=== PATIENT | female | born 1970 | race Caucasian/White ===

== ENCOUNTER 2016-08-15 15:21 | Inpatient (IN) ==
--- NOTE | 2016-08-15 16:14 | Emergency Department Note ---
Disposition Clinical Impression: JIMENEZ (dyspnea on exertion) Chest pain Qualifiers: Chest pain type: unspecified Qualified Code(s): R07.9 - Chest pain, unspecified Cirrhosis Qualifiers: Hepatic cirrhosis type: unspecified hepatic cirrhosis Ascites presence: without ascites Qualified Code(s): K74.60 - Unspecified cirrhosis of liver Disposition: Admitted As Inpatient Condition: Fair Referrals: NO,PCP [Primary Care Provider] - Forms: ED Satisfaction Letter Time of Disposition: 20:00 SOB HPI - General Chief Complaint: ED Shortness of Breath/Dyspnea Stated Complaint: SOB Time Seen by Provider: 08/15/16 15:49 Source: patient, family Limitations: no limitations Nursing Notes Reviewed: Yes Vital Signs Reviewed: Yes - History of Present Illness Patient is a 46 her old female presents with past medical history significant for COPD, cirrhosis, CKD, history of unprovoked pulmonary embolus presents with a one-week history of dyspnea. Patient states that over the last 2 days she has had increased dyspnea, which is worse with walking. Patient also admits to left-sided chest pressure that wraps around the left side to the left back. Chest pressure is worsened with exercise for as little as 10 feet. Patient states the shortness of breath and chest pressure sensation feel the same as when she previously had an unprovoked pulmonary embolism. Patient admits to pain to deep inspiration, dizziness, headache, confusion, fever, chills, dehydration. Patient did have profuse vomiting yesterday with associated abdominal pain. Patient admits to bilateral leg swelling which is constant. Patient admits to smoking one half a pack of cigarettes per day. She does admit to a history of cocaine, meth, and heroin in the past. - Related Data Allergies Allergy/AdvReac Type Severity Reaction Status Date / Time ibuprofen Allergy See Verified 08/15/16 15:23 Comments rivaroxaban [From Xarelto] Allergy See Verified 08/15/16 15:23 Comments [place] Allergy See Verified 08/15/16 15:23 Comments All systems ED: reviewed and negative except as stated. Constitutional: Reports: as per HPI Eyes: Reports: as per HPI ENT ED: Reports: as per HPI Cardiovascular: Reports: as per HPI Respiratory: Reports: as per HPI Gastrointestinal: Reports: as per HPI Genitourinary: Reports: as per HPI Musculoskeletal: Reports: as per HPI Integumentary: Reports: as per HPI Neurological: Reports: as per HPI Psychiatric: Reports: as per HPI Endocrine: Reports: as per HPI Hematological/Lymphatic: Reports: as per HPI Allergic/Immunologic: Reports: as per HPI Past Medical History - Past Medical History Medical history: Reports: cirrhosis, COPD, liver disease, pulmonary embolus, renal disease Psychiatric history: Reports: no psych history - Social History Smoking Status: Current every day smoker Alcohol use: Reports: none Drug use: Reports: none Physical Exam - General Limitations: no limitations General appearance: alert, anxious, in distress (Mild) - Head Head exam: atraumatic - Eye Eye exam: Present: normal appearance, EOMI - Neck Neck exam: Present: normal inspection, full ROM, trachea midline. Absent: tenderness, thyromegaly - Chest Chest inspection: Present: normal inspection, symmetric chest wall rise. Absent : tenderness - Respiratory Respiratory exam: Present: normal lung sounds bilaterally. Absent: respiratory distress, wheezes - Cardiovascular Cardiovascular exam: Present: regular rate, normal rhythm, +S1, +S2. Absent: systolic murmur, diastolic murmur, JVD - Abdominal Exam Abdominal exam: Present: soft, Non-Tender, normal bowel sounds. Absent: distention, guarding, rebound, rigidity - Extremities Exam Extremities exam: Present: full ROM, tenderness (To palpation of lower legs), pedal edema (2+ pitting edema to left lower leg to the level of the knee. 1+ pitting edema to right lower leg to the level of the knee.), other. Absent: joint swelling - Neurological Exam Neurological exam: Present: alert, oriented X3 - Psychiatric Psychiatric exam: Present: anxious - Skin Skin exam: Present: warm, dry, intact Course - Reevaluation(s) Reevaluation #1: Patient has an elevated d-dimer of 661. Her GFR is 50. We will proceed with CTA chest to rule out PE. Patient's initial troponin is 0.00. Time: 17:36 Reevaluation #2: CT chest is negative for pulmonary embolism. The patient does have moderate emphysema which is greater than expected for age. CT does reveal a small patchy opacity in the left lateral lung base this likely contracts representative of atelectasis. Also demonstrated is hepatic steatosis and small hiatal hernia. Given the patient's symptoms of chest pain with dyspnea on exertion and T-wave inversions present on EKG, we will admit the patient to rule out myocardial ischemia. Time: 19:30 Vital Signs Temperature 98.3 F 08/15/16 15:24 Pulse Rate 110 08/15/16 15:24 Respiratory Rate 22 08/15/16 15:24 Blood Pressure 96/65 08/15/16 15:24 O2 Sat by Pulse Oximetry 99 08/15/16 15:24 Temperature 98.3 F 08/15/16 15:46 Pulse Rate 100 08/15/16 16:02 Respiratory Rate 16 08/15/16 16:02 Blood Pressure 136/80 08/15/16 16:02 O2 Sat by Pulse Oximetry 99 08/15/16 16:02 Oxygen Delivery Oxygen Delivery Room Air Shortness of Breath/Dyspnea - MDM Narrative Medical decision making narrative: Patient presents with increased dyspnea and chest pressure that spent worsening for the last 2 days. She states this pain is similar to when she had an unprovoked PE in the past. Upon presentation, patient did have tachycardia at a rate of 100bpm and mild hypotension of 96/65. We will proceed with obtaining CBC, CMP, troponin, d-dimer. Concern is that this may be a PE, but there is also concern for myocardial ischemia given dyspnea on exertion. Tests are pending at this time. - Lab Data Lab results reviewed: Yes I reviewed the patient's lab results. Result diagrams: 08/15/16 16:44 08/15/16 16:44 Lab Results 08/15/16 08/15/16 08/15/16 Range/Units 16:44 16:44 16:44 WBC 8.6 (4.3-11.1) K/mcL RBC 3.42 L (3.82-4.97) M/mcL Hgb 10.8 L (11.5-15.4) g/dL Hct 31.9 L (35.3-44.9) % MCV 93.3 (83.0-100.0) fL MCH 31.6 (28.0-33.3) pg MCHC 33.9 (31.6-35.5) g/dL RDW 16.5 H (11.5-14.5) % Plt Count 444 H (140-400) K/mcL MPV 10.1 (9.4-12.4) fL Immature Gran % 0.2 (0-4) % Seg Neutrophils % 52.6 % Lymphocytes % 38.4 % Monocytes % 8.3 % Eosinophils % 0.1 % Basophils % 0.4 % Neutrophils # 4.5 (1.6-8.9) K/mcL Lymphocytes # 3.3 (0.6-4.6) K/mcL Monocytes # 0.7 (0.0-1.3) K/mcL Eosinophils # 0.0 (0.0-0.6) K/mcL Basophils # 0.0 (0.0-0.2) K/mcL D-Dimer 617 H (0-500) ng/mLFEU Sodium 140 (136-145) mEq/L Potassium 4.2 (3.5-4.5) mEq/L Chloride 110 H (98-109) mEq/L Carbon Dioxide 21 (19-29) mEq/L BUN 15 (7-20) mg/dL Creatinine 1.17 H (0.57-1.11) mg/dL Est GFR ( Amer) > 60 (> 60) Est GFR (Non-Af Amer) 50 L (> 60) BUN/Creatinine Ratio 13 (6-26) Glucose 92 (70-99) mg/dL Calculated Osmolality 290 (280-300) Lactic Acid (0.5-2.2) mmol/L Calcium 7.3 L (8.6-10.8) mg/dL Troponin I (0-0.03) ng/mL B-Natriuretic Peptide (0-100) pg/mL Urine Color (Yellow) Urine Clarity (Clear) Urine pH (5.0-8.0) pH Units Ur Specific [place] (1.010-1.025) Urine Protein (Neg-Trace) mg/dL Urine Glucose (UA) (Normal) mg/dL Urine Ketones (Negative) mg/dL Urine Blood (Negative) Urine Nitrite (Negative) Urine Bilirubin (Negative) Urine Urobilinogen (Normal) mg/dL Ur Leukocyte Esterase (Negative) Urine Microscopic RBC (0-3) per hpf Urine Microscopic WBC (0-3) per hpf Ur Squamous Epith Cells (None-Few) per lpf Urine Bacteria (None-Few) per hpf Hyaline Casts (None-Few) per lpf Ur Culture Indicated? (NO) Urine Opiates Screen (Dfayoi=645) ng/mL Ur Barbiturates Screen (Zuudll=381) ng/mL Ur Phencyclidine Scrn (Cutoff=25) ng/mL Ur Amphetamines Screen (Nlhbrt=1965) ng/mL U Benzodiazepines Scrn (Zxyvck=081) ng/mL Urine Cocaine Screen (Cutoff= 300) ng/mL U Marijuana (THC) Screen (Cutoff = 50) ng/mL 08/15/16 08/15/16 08/15/16 Range/Units 16:44 16:44 16:44 WBC (4.3-11.1) K/mcL RBC (3.82-4.97) M/mcL Hgb (11.5-15.4) g/dL Hct (35.3-44.9) % MCV (83.0-100.0) fL MCH (28.0-33.3) pg MCHC (31.6-35.5) g/dL RDW (11.5-14.5) % Plt Count (140-400) K/mcL MPV (9.4-12.4) fL Immature Gran % (0-4) % Seg Neutrophils % % Lymphocytes % % Monocytes % % Eosinophils % % Basophils % % Neutrophils # (1.6-8.9) K/mcL Lymphocytes # (0.6-4.6) K/mcL Monocytes # (0.0-1.3) K/mcL Eosinophils # (0.0-0.6) K/mcL Basophils # (0.0-0.2) K/mcL D-Dimer (0-500) ng/mLFEU Sodium (136-145) mEq/L Potassium (3.5-4.5) mEq/L Chloride (98-109) mEq/L Carbon Dioxide (19-29) mEq/L BUN (7-20) mg/dL Creatinine (0.57-1.11) mg/dL Est GFR ( Amer) (> 60) Est GFR (Non-Af Amer) (> 60) BUN/Creatinine Ratio (6-26) Glucose (70-99) mg/dL Calculated Osmolality (280-300) Lactic Acid 3.6 H (0.5-2.2) mmol/L Calcium (8.6-10.8) mg/dL Troponin I 0.00 (0-0.03) ng/mL B-Natriuretic Peptide 34 (0-100) pg/mL Urine Color (Yellow) Urine Clarity (Clear) Urine pH (5.0-8.0) pH Units Ur Specific [place] (1.010-1.025) Urine Protein (Neg-Trace) mg/dL Urine Glucose (UA) (Normal) mg/dL Urine Ketones (Negative) mg/dL Urine Blood (Negative) Urine Nitrite (Negative) Urine Bilirubin (Negative) Urine Urobilinogen (Normal) mg/dL Ur Leukocyte Esterase (Negative) Urine Microscopic RBC (0-3) per hpf Urine Microscopic WBC (0-3) per hpf Ur Squamous Epith Cells (None-Few) per lpf Urine Bacteria (None-Few) per hpf Hyaline Casts (None-Few) per lpf Ur Culture Indicated? (NO) Urine Opiates Screen (Xkzhhv=555) ng/mL Ur Barbiturates Screen (Bpqxtg=789) ng/mL Ur Phencyclidine Scrn (Cutoff=25) ng/mL Ur Amphetamines Screen (Hciodq=6478) ng/mL U Benzodiazepines Scrn (Jiyqpo=308) ng/mL Urine Cocaine Screen (Cutoff= 300) ng/mL U Marijuana (THC) Screen (Cutoff = 50) ng/mL 08/15/16 08/15/16 08/15/16 Range/Units 17:35 17:35 18:50 WBC (4.3-11.1) K/mcL RBC (3.82-4.97) M/mcL Hgb (11.5-15.4) g/dL Hct (35.3-44.9) % MCV (83.0-100.0) fL MCH (28.0-33.3) pg MCHC (31.6-35.5) g/dL RDW (11.5-14.5) % Plt Count (140-400) K/mcL MPV (9.4-12.4) fL Immature Gran % (0-4) % Seg Neutrophils % % Lymphocytes % % Monocytes % % Eosinophils % % Basophils % % Neutrophils # (1.6-8.9) K/mcL Lymphocytes # (0.6-4.6) K/mcL Monocytes # (0.0-1.3) K/mcL Eosinophils # (0.0-0.6) K/mcL Basophils # (0.0-0.2) K/mcL D-Dimer (0-500) ng/mLFEU Sodium (136-145) mEq/L Potassium (3.5-4.5) mEq/L Chloride (98-109) mEq/L Carbon Dioxide (19-29) mEq/L BUN (7-20) mg/dL Creatinine (0.57-1.11) mg/dL Est GFR ( Amer) (> 60) Est GFR (Non-Af Amer) (> 60) BUN/Creatinine Ratio (6-26) Glucose (70-99) mg/dL Calculated Osmolality (280-300) Lactic Acid 2.2 (0.5-2.2) mmol/L Calcium (8.6-10.8) mg/dL Troponin I (0-0.03) ng/mL B-Natriuretic Peptide (0-100) pg/mL Urine Color Gem A (Yellow) Urine Clarity Cloudy A (Clear) Urine pH 5.5 (5.0-8.0) pH Units Ur Specific [place] > 1.030 H (1.010-1.025) Urine Protein Negative (Neg-Trace) mg/dL Urine Glucose (UA) Normal (Normal) mg/dL Urine Ketones Trace H (Negative) mg/dL Urine Blood Negative (Negative) Urine Nitrite Negative (Negative) Urine Bilirubin Small H (Negative) Urine Urobilinogen Normal (Normal) mg/dL Ur Leukocyte Esterase Trace H (Negative) Urine Microscopic RBC 0-3 (0-3) per hpf Urine Microscopic WBC 3-5 H (0-3) per hpf Ur Squamous Epith Cells Many H (None-Few) per lpf Urine Bacteria None Seen (None-Few) per hpf Hyaline Casts Moderate H (None-Few) per lpf Ur Culture Indicated? YES A (NO) Urine Opiates Screen Negative (Lrpdyl=338) ng/mL Ur Barbiturates Screen Negative (Rmwchp=523) ng/mL Ur Phencyclidine Scrn Negative (Cutoff=25) ng/mL Ur Amphetamines Screen Negative (Zloidl=2173) ng/mL U Benzodiazepines Scrn Negative (Wqrndd=736) ng/mL Urine Cocaine Screen Negative (Cutoff= 300) ng/mL U Marijuana (THC) Screen Negative (Cutoff = 50) ng/mL - Radiology Data Radiology results reviewed: Yes I reviewed the patient's radiology results. Chest X-Ray 08/15/16 16:12 IMPRESSION: No acute findings in the chest. D/ / Dallin Angel MD / Dallin Angel MD Interpreting Provider: Dallin Angel MD Chest CTA 08/15/16 17:34 IMPRESSION: 1. No evidence of pulmonary embolism. 2. Moderate emphysema, greater than expected for age. 3. Small patchy opacity laterally at the base of the left lower lobe, most likely atelectasis. 4. Hepatic steatosis. 5. Small hiatal hernia. D/ / 08/15/2016 19:07:56 Greg Monge MD / lesliertcedric Interpreting Provider: Greg Monge MD - EKG Data EKG attestation: Yes I reviewed and interpreted this EKG. EKG results narrative: EKG sinus rhythm at a rate of 91 bpm. T-wave inversions in II, III, aVF, V1, V2 , V3, V4, V5. No ST segment elevations or depressions. There is no EKG for comparison. Attestation Statement - Attestation Attestation: Patient was seen with resident physician. I reviewed the history, physical, assessment and plan, and agree with the findings. I also personally evaluated this patient and had [id number] time with this patient. 46 show female presents to the emergency department with chief complaint of shortness of breath. Patient has a history of PEs 2. Comes in today with 2 day history of worsening shortness of breath and some chest pain. Pain is on the left side in similar location where her PEs were the past. She has a history of drug abuse. Patient states she has not been seen at this facility previously. On examination vital signs are stable with good pulse ox. ENT is unremarkable. Heart and lungs are both normal except for slight tachycardia. Abdomen is soft and nontender. Extremities patient has signs of chronic venous insufficiency of the lower extremities bilaterally with 1+ edema slightly worse on the left than on the right. Neurologically the patient's intact. ED course EKG shows some inverted T waves we have no old EKG for comparison. CT scan of the chest was ordered to rule out PE. As well as other basic lab testing. We will likely admit the patient for either chest pain or PE. Hemodynamically she made stable on the emergency department. CT showed no acute PE, labs are otherwise unremarkable. With the patient's chest pain and shortness of breath and dyspnea on exertion we felt admission was indicated. Spoke to the hospitalist who agreed to accept patient. I agree with the resident physician assessment and plan.
[2016-08-15 16:59] LABS: Basophils % 0.4 %; Eosinophils % 0.1 %; Hematocrit 31.9 % (35.3-44.9); Hemoglobin 10.8 g/dL (11.5-15.4); Immature Granulocytes % 0.2 % (0-4); Lymphocytes # 3.3 K/mcL (0.6-4.6); Lymphocytes % 38.4 %; Mean Corpuscular HGB Conc 33.9 g/dL (31.6-35.5); Mean Corpuscular Hemoglobin 31.6 pg (28.0-33.3); Mean Corpuscular Volume 93.3 fL (83.0-100.0); Mean Platelet Volume 10.1 fL (9.4-12.4); Monocytes # 0.7 K/mcL (0.0-1.3); Monocytes % 8.3 %; Neutrophils # 4.5 K/mcL (1.6-8.9); Platelet Count 444 K/mcL (140-400); Red Blood Count 3.42 M/mcL (3.82-4.97); Red Cell Distribution Width 16.5 % (11.5-14.5); Segmented Neutrophils % 52.6 %
[2016-08-15 17:22] LABS: BUN/Creatinine Ratio 13 (6-26); Blood Urea Nitrogen 15 mg/dL (7-20); Calcium 7.3 mg/dL (8.6-10.8); Carbon Dioxide 21 mEq/L (19-29); Chloride 110 mEq/L (98-109); Glucose 92 mg/dL (70-99); Osmolality,Calculated 290 (280-300); Potassium 4.2 mEq/L (3.5-4.5); Sodium 140 mEq/L (136-145); eGFR For African Americans > 60 (> 60); eGFR For Non-African Americans 50 (> 60)
[2016-08-15 17:45] LABS: Bilirubin,Urine Small (Negative); Blood,Urine Negative (Negative); Clarity,Urine Cloudy (Clear); Color,Urine Orange (Yellow); Glucose,Urine (UA) Normal (Normal); Ketones,Urine Trace mg/dL (Negative); Leukocyte Esterase,Urine Trace (Negative); Nitrite,Urine Negative (Negative); PH,Urine 5.5 pH Units (5.0-8.0); Protein,Urine Negative (Neg-Trace); Specific Gravity,Urine > 1.030 (1.010-1.025); Urobilinogen,Urine Normal (Normal)
[2016-08-15 17:46] LABS: Bacteria,Urine None Seen per hpf (None-Few); Hyaline Casts,Urine Moderate per lpf (None-Few); Squamous Epithelial Cell,Urine Many per lpf (None-Few)
[2016-08-15 17:50] LABS: Amphetamine Screen,Urine Negative ng/mL (Cutoff=1000); Barbiturate Screen,Urine Negative ng/mL (Cutoff=200); Benzodiazepines Screen,Urine Negative ng/mL (Cutoff=200); Cannabinoid Screen,Urine Negative ng/mL (Cutoff = 50); Cocaine Screen,Urine Negative ng/mL (Cutoff= 300); Opiate Screen,Urine Negative ng/mL (Cutoff=300); Phencyclidine Screen,Urine Negative ng/mL (Cutoff=25)
[2016-08-15] MEDS ORDERED: 0.9 % Sodium Chloride 1,000 ML IVC ONE (17:56)
[2016-08-15 18:06] LABS: RBC,Urine 0-3 per hpf (0-3)
--- NOTE | 2016-08-15 21:26 | Internal Med History&Physical ---
Date of Encounter: 08/15/16 Time of Encounter: 21:26 Assessment and Plan (1) Chest pain Current visit: Yes Status: Acute Atypical chest pain. CTA chest is negative for pulmonary embolism. Initial troponin is negative. Tender troponins - if negative, consider cardiac stress test. Qualifiers: Chest pain type: unspecified Qualified Code(s): R07.9 - Chest pain, unspecified (2) JIMENEZ (dyspnea on exertion) Current visit: Yes Status: Acute CTA chest is negative for embolism. No obvious wheezing on examination. Could be related to CAD versus undiagnosed COPD - start bronchodilators (3) VTE (venous thromboembolism) Current visit: Yes Status: Chronic Continue anticoagulation (4) Chronic anticoagulation Current visit: Yes Status: Chronic Continue warfarin and monitor INR (5) Acute kidney injury Current visit: Yes Status: Acute I do not have her baseline renal function to compare. I suspect she has acute kidney injury, possibly related to one depletion. Treat with IV fluids and monitor renal function (6) Lactic acidosis Current visit: Yes Status: Acute Unknown cause. UA is abnormal but no bacterial seen. Lactate level is improved in the ER. Check CRP (7) UTI (urinary tract infection) Current visit: Yes Status: Suspected Emperically treat with ceftriaxone. Urine cultures pending Qualifiers: Urinary tract infection type: site unspecified Hematuria presence: without hematuria Qualified Code(s): N39.0 - Urinary tract infection, site not specified (8) Nicotine dependence Current visit: Yes Status: Chronic Nicotine patches Qualifiers: Nicotine product type: cigarettes Substance use status: unspecified nicotine-induced disorder Qualified Code(s): F17.219 - Nicotine dependence, cigarettes, with unspecified nicotine-induced disorders Internal Medicine - H&P: HPI Chief complaint: Chest pressure; shortness of breath Admitted From: Emergency Dept Plans for Post Hospital Care: Home History of present illness: Ms. Lockhart is a 46 year old female with past medical history significant for COPD, cirrhosis, CKD, history of unprovoked pulmonary embolus on warfarin for anticoagulation, prior h/o drug use - presents with a one-week history of dyspnea, which is worse over the last 2 days. Shortness of breath is worse with walking. She also reports central chest / left sided chest pressure that wraps around the left side to the left back. Chest pressure is worsened with exercise for as little as 10 feet. Patient states the shortness of breath and chest pressure sensation feel the same as when she previously had an unprovoked pulmonary embolism. She reports worsening of chest pain on deep breathing. She denies significant cough, hemoptysis. She reports subjective low grade fever and chills. She reports episode of vomiting yesterday no hematemesis or melena. Reports abdominal pain at the site of her abdominal wall hernia. She reports dizziness on standing up, but no syncopal episodes. 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 She reports significant weight loss in the last week. Pt was evaluated in the ER. D-dimer was elevated at 617. CTA chest was negative for pulmonary embolism. Troponins negative. Urinalysis shows trace leukocyte esterase. She is admitted to the hospitalist service for further workup and management. Past Med Surg Social Fam HX - Past Medical History Medical history: cirrhosis, COPD, liver disease, pulmonary embolus, renal disease Psychiatric history: no psych history - Social History Smoking Status: Current every day smoker Alcohol use: none Drug use: none - Family History Mother Name: Elham Corea Living Status: Age at : 57 Cause of : MRSA infection after heart stent placement Hx Family Cardiac Disorders: Yes (NE, Stent, HTN) Hx Family Respiratory Disorders: Yes (COPD) Hx Family Cancer: No Hx Family GI Disorders: Yes Hx Family Genitourinary Disorders: No Hx Family Endocrine Disorder: Yes (DM) Hx Family Musculoskeletal Disorders: No Hx Family Neuromuscular Disorders: Yes (Fibromyalgia) Hx Family Neurologic Disorders: No Hx Family HEENT Disorders: No Hx Family Autoimmune Disorders: No Hx Family Reproductive Disorders: Yes (Uterine CA, Hyster) Hx Family Psychosocial Disorders: No Hx Family Medical Disorders: No - Additional Family History Additional family history: Family Hx reviewed and is non-contributory to current admission Internal Medicine - H&P: Meds Allergies ibuprofen Allergy (Verified 08/15/16 15:23) See Comments [place] Chris Syndrome symptoms rivaroxaban [From Xarelto] Allergy (Verified 08/15/16 15:23) See Comments Ch[place]ango Chris Syndrome symptoms [place] Allergy (Verified 08/15/16 15:23) See Comments [place]ango Chris Syndrome symptoms All Systems PM: A 10-system review of systems was performed and is negative for pertinent findings except as documented above in the HPI. - Constitutional Vitals: Temp Pulse Resp BP Pulse Ox 98.3 F 90 16 128/80 96 08/15/16 15:46 08/15/16 20:30 08/15/16 21:13 08/15/16 21:13 08/15/16 20:30 Exam: General: Not in acute distress at the time of my evaluation. Patient appears older than stated age HEENT: Oral mucosa is moist - bald tongue. No scleral icterus Neck: No obvious neck swellings Lungs: Clear to auscultation Cardiac: Regular rate and rhythm. No significant murmurs Abdomen: Soft, non tender. ventral abdominal hernia present - non tender; reducible. Bowel sounds present Genitourinary: No phillip catheter Neurological: Alert and oriented. No gross localizing deficits Psych: Not aggressive or agitated Extremities: B/L leg edema Skin: No generalized rash Internal Med - H&P Results - Labs CBC & Chem 7: 08/15/16 16:44 08/15/16 16:44 - EKG Data -: EKG Interpreted by Myself EKG shows normal: sinus rhythm - EKG Data EKG comments: Sinus rhythm, T-wave inversion in lead 2, lead 3, aVF, V1 through V6; occasional PVCs 08/15/16 22:30 - Impressions ITS Impressions Chest X-Ray 08/15/16 16:12 IMPRESSION: No acute findings in the chest. D/ / Dallin Angel MD / Dallin Angel MD Interpreting Provider: Dallin Angel MD Chest CTA 08/15/16 17:34 IMPRESSION: 1. No evidence of pulmonary embolism. 2. Moderate emphysema, greater than expected for age. 3. Small patchy opacity laterally at the base of the left lower lobe, most likely atelectasis. 4. Hepatic steatosis. 5. Small hiatal hernia. D/ / 08/15/2016 19:07:56 Greg Monge MD / aliza Interpreting Provider: Greg Monge MD
[2016-08-15] MEDS ORDERED: Naloxone 0.4 MG/ML INJ IVP PRN (22:34)
[2016-08-15] MEDS ORDERED: Nitroglycerin 0.4 MG TAB.SUBL SL PRN (22:36)
[2016-08-15] MEDS: 0.9 % Sodium Chloride 1,000 ML IVC SCH (23:12)
[2016-08-15] MEDS ORDERED: Ipratropium/Albuterol Neb 3 ML IH PRN (23:52)
[2016-08-16 00:02] LABS: INR 3.3; Prothrombin Time 36.7 Seconds (9.4-12.1)
[2016-08-16] MEDS: Nicotine 14 MG PATCH.TD24 TD SCH ×2 (02:13→13:14)
[2016-08-16] MEDS: Gabapentin 300 MG CAPSULE PO SCH ×2 (02:14→20:01)
[2016-08-16 04:50] LABS: Basophils # 0.1 K/mcL (0.0-0.2); Basophils % 0.6 %; Eosinophils # 0.1 K/mcL (0.0-0.6); Eosinophils % 0.8 %; Hematocrit 29.4 % (35.3-44.9); Hemoglobin 9.9 g/dL (11.5-15.4); Immature Granulocytes % 0.3 % (0-4); Lymphocytes # 4.3 K/mcL (0.6-4.6); Lymphocytes % 55.1 %; Mean Corpuscular HGB Conc 33.7 g/dL (31.6-35.5); Mean Corpuscular Hemoglobin 31.7 pg (28.0-33.3); Mean Corpuscular Volume 94.2 fL (83.0-100.0); Mean Platelet Volume 9.7 fL (9.4-12.4); Monocytes # 0.8 K/mcL (0.0-1.3); Monocytes % 10.2 %; Neutrophils # 2.6 K/mcL (1.6-8.9); Platelet Count 390 K/mcL (140-400); Red Blood Count 3.12 M/mcL (3.82-4.97); Red Cell Distribution Width 16.8 % (11.5-14.5)
[2016-08-16 05:00] LABS: INR 4.4; Prothrombin Time 49.4 Seconds (9.4-12.1)
[2016-08-16 05:07] LABS: BUN/Creatinine Ratio 14 (6-26); Blood Urea Nitrogen 12 mg/dL (7-20); Calcium 7.1 mg/dL (8.6-10.8); Carbon Dioxide 17 mEq/L (19-29); Chloride 115 mEq/L (98-109); Chol/HDL Ratio 3.3 (0-4.9); Glucose 91 mg/dL (70-99); HDL Cholesterol 13 mg/dL (40-59); LDL Cholesterol,Calculated 20 mg/dL (0-99); Magnesium 1.7 mg/dL (1.6-2.6); Osmolality,Calculated 285 (280-300); Potassium 3.8 mEq/L (3.5-4.5); Sodium 138 mEq/L (136-145); Triglycerides 49 mg/dL (< 150); eGFR For African Americans > 60 (> 60); eGFR For Non-African Americans > 60 (> 60)
[2016-08-16 05:08] LABS: Cholesterol 43 mg/dL (< 200)
[2016-08-16] MEDS ORDERED: 0.9 % Sodium Chloride 500 ML IVC ONE (05:18)
[2016-08-16] MEDS ORDERED: Cyanocobalamin (B-12) 1,000 MCG/ML VIAL IM SCH (09:00)
[2016-08-16] MEDS: NALOXONE HCL PO SCH ×2 (13:06→15:43)
[2016-08-16] MEDS: BUPRENORPHINE HCL PO SCH ×2 (13:06→15:43)
[2016-08-16] MEDS: Spironolactone 25 MG TABLET PO SCH (13:12)
[2016-08-16] MEDS: 0.9 % Sodium Chloride 1,000 ML IVC SCH (13:13)
[2016-08-16] MEDS: Multivit/Ca/Min/Fe/FA 1 TAB TABLET PO SCH (13:13)
[2016-08-16] MEDS: Furosemide 20 MG TABLET PO SCH (13:13)
[2016-08-16] MEDS: Folic Acid 1 MG TABLET PO SCH (13:13)
[2016-08-16] MEDS: Cholecalciferol (D-3) 1,000 UNIT TABLET PO SCH (13:13)
--- NOTE | 2016-08-16 15:27 | Internal Med Progress Note ---
Date of Encounter: 08/16/16 Time of Encounter: 12:30 - Assessment and plan (1) Chest pain Current Visit: Yes Status: Acute Assessment and plan: During my examination with her, patient's chief complaint was suprapubic abdominal pain consistent with her urinary tract infection. She did endorse mild chest pain but could not elaborate. Chest x-ray negative. CTA negative for acute processes. Troponin negative 3. Low suspicion for acute coronary syndrome. Echocardiogram is pending. If echocardiogram abnormal, we will consider further ischemic cardiac workup although suspicion is low. Symptoms more consistent with urinary tract infection and initial dehydration. ITS Impressions Chest X-Ray 08/15/16 16:12 IMPRESSION: No acute findings in the chest. D/ / Dallin Angel MD / Dallin Angel MD Interpreting Provider: Dallin Angel MD Chest CTA 08/15/16 17:34 IMPRESSION: 1. No evidence of pulmonary embolism. 2. Moderate emphysema, greater than expected for age. 3. Small patchy opacity laterally at the base of the left lower lobe, most likely atelectasis. 4. Hepatic steatosis. 5. Small hiatal hernia. D/ : / 08/15/2016 19:07:56 Greg Monge MD / aliza Interpreting Provider: Greg Monge MD Qualifiers: Chest pain type: unspecified Qualified Code(s): R07.9 - Chest pain, unspecified (2) Quit drug use in remote past Current Visit: Yes Status: Chronic Assessment and plan: Patient remains on Suboxone. Patient is refusing pain medications stating she needs to take her Suboxone. We will continue home dose. (3) JIMENEZ (dyspnea on exertion) Current Visit: Yes Status: Acute Assessment and plan: Unclear causation. Echocardiogram pending. Suspect undiagnosed COPD, continue bronchodilators. She is not fluid overloaded on examination at this time. (4) Cirrhosis Current Visit: Yes Status: Chronic Assessment and plan: Patient denies upper abdominal pain. She states she has not drank in quite some time. We will check LFTs and monitor. (5) Chronic anticoagulation Current Visit: Yes Status: Chronic Assessment and plan: Slightly supratherapeutic at this time with an INR 4.4. We will hold tonight's dose and trend. No signs of active bleeding, no indication for reversal agent at this time. (6) VTE (venous thromboembolism) Current Visit: Yes Status: Chronic (7) Nicotine dependence Current Visit: Yes Status: Chronic Assessment and plan: Declines counseling. Nicotine patch. Qualifiers: Nicotine product type: cigarettes Substance use status: unspecified nicotine-induced disorder Qualified Code(s): F17.219 - Nicotine dependence, cigarettes, with unspecified nicotine-induced disorders (8) Acute kidney injury Current Visit: Yes Status: Resolved (9) Lactic acidosis Current Visit: Yes Status: Acute Assessment and plan: Essentially resolved. Continue IV fluids and antibiotics. No leukocytosis. Heart rate stable. Her blood pressure is low however she states this is normal for her. We will trend. (10) UTI (urinary tract infection) Current Visit: Yes Status: Acute Assessment and plan: Preliminary culture reports gram-negative rods, continue ceftriaxone and await sensitivities. Qualifiers: Urinary tract infection type: site unspecified Hematuria presence: without hematuria Qualified Code(s): N39.0 - Urinary tract infection, site not specified - Subjective Interval history: Patient seen and examined. On examination, patient initially asleep in bed. She awakened easily to voice and complained of pain and burning across her lower abdomen as well as chest pain. She denies shortness of breath at this time. Patient refusing pain medication stating she would rather take her Suboxone. - Constitutional Vitals: Temp Pulse Resp BP Pulse Ox 98.2 F 72 16 88/60 96 08/16/16 15:17 08/16/16 15:17 08/16/16 15:17 08/16/16 15:17 08/16/16 15:17 General appearance: Present: disheveled (appears older than stated age), mild distress (2/2 pain), A&O X 3, pleasant, answers questions appropriately - Head Head exam: Present: atraumatic, normocephalic - Eye Eye exam: Present: PERRL, conjuntiva pink, sclera anicteric Pupils: Present: PERRL - Neck Neck exam general surgery: Present: supple, trachea midline. Absent: lymphadenopathy - Respiratory Respiratory exam: Present: decreased breath sounds. Absent: accessory muscle use, rales, respiratory distress, rhonchi, wheezes - Cardiovascular Cardiovascular exam: Present: RRR, +S1, +S2. Absent: diastolic murmur, gallop, rubs, systolic murmur - GI/Abdominal GI/Abdominal exam: Present: distended (mildly), hyperactive bowel sounds, soft, tenderness (diffuse across lower abd), no peritoneal signs - Extremities Exam Extremities exam: Present: pedal edema (trace, nonpitting- nml per patient), warm, radial pulses palpable and symetrical. Absent: calf tenderness, cyanotic - Neurological Exam Neurological exam: Present: alert, CN II-XII intact, oriented X3, no focal deficits, strengths equal and symetr throughout. Absent: pronater drift, facial droop, speech deficit - Skin Skin exam: Present: dry, intact, pallor, warm Internal Medicine: Result - Labs CBC & Chem 7: 08/16/16 04:23 08/16/16 04:23 Labs: Short CBC 08/16/16 Range/Units 04:23 WBC 7.8 (4.3-11.1) K/mcL Hgb 9.9 L (11.5-15.4) g/dL Hct 29.4 L (35.3-44.9) % Plt Count 390 (140-400) K/mcL Neutrophils # 2.6 (1.6-8.9) K/mcL BMP 08/16/16 04:23 Sodium 138 Potassium 3.8 Chloride 115 H Carbon Dioxide 17 L BUN 12 Creatinine 0.88 Glucose 91 Calcium 7.1 L Cardiac Enzymes 08/15/16 08/16/16 Range/Units 22:57 04:23 Troponin I 0.00 0.02 (0-0.03) ng/mL - ABG Interpretation ABG results: PT/INR, D-dimer PT 49.4 Seconds (9.4-12.1) H* 08/16/16 04:23 D-Dimer 617 ng/mLFEU (0-500) H 08/15/16 16:44 - VTE Reasons for not Prescribing Prophylaxis: Not indicated-Anticoagulated or INR therapeutic Consult Discharge Plan - Plan Referrals: NO,PCP [Primary Care Provider] -
[2016-08-16] MEDS: Ipratropium/Albuterol Neb 3 ML IH SCH ×2 (16:05→21:30)
[2016-08-16] MEDS ORDERED: Warfarin perPT PO PRN (18:00)
[2016-08-17] MEDS: Ipratropium/Albuterol Neb 3 ML IH SCH ×4 (03:46→21:00)
[2016-08-17 04:35] LABS: Basophils % 0.3 %; Eosinophils % 0.5 %; Hematocrit 27.3 % (35.3-44.9); Hemoglobin 9.2 g/dL (11.5-15.4); Immature Granulocytes % 0.2 % (0-4); Lymphocytes # 3.3 K/mcL (0.6-4.6); Lymphocytes % 50.7 %; Mean Corpuscular HGB Conc 33.7 g/dL (31.6-35.5); Mean Corpuscular Hemoglobin 31.8 pg (28.0-33.3); Mean Corpuscular Volume 94.5 fL (83.0-100.0); Mean Platelet Volume 10.1 fL (9.4-12.4); Monocytes # 0.6 K/mcL (0.0-1.3); Monocytes % 8.5 %; Neutrophils # 2.6 K/mcL (1.6-8.9); Nucleated Red Blood Cells 0.3 /100 WBC (0); Platelet Count 341 K/mcL (140-400); Red Blood Count 2.89 M/mcL (3.82-4.97); Red Cell Distribution Width 17.2 % (11.5-14.5); Segmented Neutrophils % 39.8 %
[2016-08-17 04:41] LABS: INR 4.7; Prothrombin Time 52.7 Seconds (9.4-12.1)
[2016-08-17 04:45] LABS: BUN/Creatinine Ratio 13 (6-26); Blood Urea Nitrogen 9 mg/dL (7-20); Calcium 6.7 mg/dL (8.6-10.8); Carbon Dioxide 19 mEq/L (19-29); Chloride 117 mEq/L (98-109); Glucose 93 mg/dL (70-99); Osmolality,Calculated 290 (280-300); Potassium 3.2 mEq/L (3.5-4.5); Sodium 141 mEq/L (136-145); eGFR For African Americans > 60 (> 60); eGFR For Non-African Americans > 60 (> 60)
[2016-08-17] MEDS: Nicotine 14 MG PATCH.TD24 TD SCH (09:20)
[2016-08-17] MEDS: BUPRENORPHINE HCL PO SCH ×2 (09:21→17:36)
[2016-08-17] MEDS: Cholecalciferol (D-3) 1,000 UNIT TABLET PO SCH (09:21)
[2016-08-17] MEDS: Furosemide 20 MG TABLET PO SCH (09:21)
[2016-08-17] MEDS: Multivit/Ca/Min/Fe/FA 1 TAB TABLET PO SCH (09:21)
[2016-08-17] MEDS: Folic Acid 1 MG TABLET PO SCH (09:21)
[2016-08-17] MEDS: NALOXONE HCL PO SCH ×2 (09:21→17:36)
[2016-08-17] MEDS: Spironolactone 25 MG TABLET PO SCH (09:21)
[2016-08-17 12:15] LABS: Albumin 1.6 g/dL (3.5-5.0); Albumin/Globulin Ratio 0.7 (1.1-2.2); Bilirubin,Direct 0.2 mg/dL (0.0-0.5); Bilirubin,Indirect 0.2 mg/dL (0.0-1.2); Bilirubin,Total 0.4 mg/dL (0.2-1.2); Globulin 2.4 g/dL (2.4-3.5)
[2016-08-17] MEDS ORDERED: Calcium Gluconate 1,000 MG in D5% in Water 100 ML IVPB ONE (13:34)
--- NOTE | 2016-08-17 13:46 | Internal Med Progress Note ---
Date of Encounter: 08/17/16 Time of Encounter: 10:00 - Assessment and plan (1) UTI (urinary tract infection) Current Visit: Yes Status: Acute Assessment and plan: Urine culture consistent with pansensitive Escherichia coli. Continue ceftriaxone. Qualifiers: Urinary tract infection type: site unspecified Hematuria presence: without hematuria Qualified Code(s): N39.0 - Urinary tract infection, site not specified (2) Hypoalbuminemia due to protein-calorie malnutrition Current Visit: Yes Status: Acute Assessment and plan: acute on chronic. Today, on examination, patient appears much more pale and even slightly jaundiced. Her albumin and prealbumin levels are markedly low- albumin infusion ordered and nutrition consulted. She is quite weak on examination. OT and PT have been brought on board. Her sister is at the bedside and states that they have started to seek inpatient rehabilitation placement to help with her malnourishment and weakness. Her sister states that she is too weak to be cared for at home. (3) Angular cheilitis Current Visit: Yes Status: Acute Assessment and plan: Due to malnutrition, addressing at this time. (4) Malnutrition Current Visit: Yes Status: Acute (5) Hypocalcemia Current Visit: Yes Status: Acute Assessment and plan: Likely hypocalcemic and pseudo-hypocalcemia given her low albumin levels. Repleting both, will trend and bring nutrition on board. (6) Chest pain Current Visit: Yes Status: Acute Assessment and plan: During my examination with her, patient's chief complaint was suprapubic abdominal pain consistent with her urinary tract infection. She denies chest pain at this time. Chest x-ray negative. CTA negative for acute processes. Troponin negative 3. Low suspicion for acute coronary syndrome. Echocardiogram is unremarkable with ejection fraction of 60-65%. No further ischemic cardiac workup indicated at this time. Symptoms more consistent with urinary tract infection and malnutrition. ITS Impressions Chest X-Ray 08/15/16 16:12 IMPRESSION: No acute findings in the chest. D/ / Dallin Angel MD / Dallin Angel MD Interpreting Provider: Dallin Angel MD Chest CTA 08/15/16 17:34 IMPRESSION: 1. No evidence of pulmonary embolism. 2. Moderate emphysema, greater than expected for age. 3. Small patchy opacity laterally at the base of the left lower lobe, most likely atelectasis. 4. Hepatic steatosis. 5. Small hiatal hernia. D/ / 08/15/2016 19:07:56 Greg Monge MD / aliza Interpreting Provider: Greg Monge MD Echocardiogram impressions: LVEF 60-65%. Normal LV chamber size, wall thickness and function. Normal left ventricular diastolic function. Normal right ventricular structure and function. Borderline mild pulmonary hypertension. RVSP 35 mmHg. No significant valvular dysfunction. No evidence of endocarditis. Qualifiers: Chest pain type: unspecified Qualified Code(s): R07.9 - Chest pain, unspecified (7) Quit drug use in remote past Current Visit: Yes Status: Chronic Assessment and plan: Patient remains on Suboxone. Patient is refusing pain medications stating she needs to take her Suboxone. We will continue home dose. (8) JIMENEZ (dyspnea on exertion) Current Visit: Yes Status: Acute Assessment and plan: Unclear causation. Echocardiogram unremarkable. Suspect multifactorial with undiagnosed COPD and malnutrition resulting in weakness and anemia. Continue bronchodilators; addressing malnutrition. She is not fluid overloaded on examination- but rather malnourished. (9) Cirrhosis Current Visit: Yes Status: Chronic Assessment and plan: Patient denies upper abdominal pain. She states she has not drank in quite some time. LFTs unremarkable. (10) Chronic anticoagulation Current Visit: Yes Status: Chronic Assessment and plan: Slightly supratherapeutic at this time with an INR 4.5. Holding coumadin- dosing per pharmacy. No signs of active bleeding, no indication for reversal agent at this time. (11) Supratherapeutic INR Current Visit: Yes Status: Acute Assessment and plan: See prior note for anticoagulation therapy (12) VTE (venous thromboembolism) Current Visit: Yes Status: Chronic (13) Nicotine dependence Current Visit: Yes Status: Chronic Assessment and plan: Declines counseling. Nicotine patch. Qualifiers: Nicotine product type: cigarettes Substance use status: unspecified nicotine-induced disorder Qualified Code(s): F17.219 - Nicotine dependence, cigarettes, with unspecified nicotine-induced disorders (14) Acute kidney injury Current Visit: Yes Status: Resolved (15) Lactic acidosis Current Visit: Yes Status: Acute Assessment and plan: Essentially resolved. Continue IV fluids and antibiotics. No leukocytosis. Heart rate stable. Her blood pressure is low however she states this is normal for her. We will trend. - Time Spent With Patient Greater than 35 minutes (patient and family with many concerns) - Subjective Interval history: Patient seen and examined. On examination, patient sitting upright in bed conversing with her sister. Patient stating she feels worse than yesterday. She states she feels very weak. She continues to have pain across her lower abdomen. She is also endorsing diarrhea. She denies nausea or vomiting. She states that her hands, for, and her feet are burning. She states that when she has had this in the past that is because her albumin levels were too low. Her sisters at the bedside and states that patient has become progressively weak over the past several months to the point where she feels she could no longer care for her at home and is seeking placement to help her with her malnutrition. - Constitutional Vitals: Temp Pulse Resp BP Pulse Ox 98.7 F 13 61 91/59 99 08/17/16 11:56 08/17/16 11:56 08/17/16 11:56 08/17/16 11:56 08/17/16 11:56 General appearance: Present: disheveled (appears older than stated age), mild distress (2/2 pain), A&O X 3, pleasant, answers questions appropriately - Head Head exam: Present: atraumatic, normocephalic - Eye Eye exam: Present: PERRL, conjuntiva pink, sclera anicteric Pupils: Present: PERRL - Neck Neck exam general surgery: Present: supple, trachea midline. Absent: lymphadenopathy - Respiratory Respiratory exam: Present: decreased breath sounds. Absent: accessory muscle use, rales, respiratory distress, rhonchi, wheezes - Cardiovascular Cardiovascular exam: Present: RRR, +S1, +S2. Absent: diastolic murmur, gallop, rubs, systolic murmur - GI/Abdominal GI/Abdominal exam: Present: hyperactive bowel sounds, soft, tenderness (diffuse) , no peritoneal signs. Absent: distended - Extremities Exam Extremities exam: Present: warm, radial pulses palpable and symetrical. Absent : calf tenderness, cyanotic, pedal edema - Neurological Exam Neurological exam: Present: alert, CN II-XII intact, oriented X3, no focal deficits, strengths equal and symetr throughout. Absent: pronater drift, facial droop, speech deficit - Skin Skin exam: Present: dry, erythema (around mouth, to hands and feet), intact, pallor, warm Internal Medicine: Result - Labs CBC & Chem 7: 08/17/16 03:45 08/17/16 03:45 Labs: Short CBC 08/17/16 Range/Units 03:45 WBC 6.5 (4.3-11.1) K/mcL Hgb 9.2 L (11.5-15.4) g/dL Hct 27.3 L (35.3-44.9) % Plt Count 341 (140-400) K/mcL Neutrophils # 2.6 (1.6-8.9) K/mcL BMP 08/17/16 03:45 Sodium 141 Potassium 3.2 L Chloride 117 H Carbon Dioxide 19 BUN 9 Creatinine 0.71 Glucose 93 Calcium 6.7 L Liver Function 08/17/16 08/17/16 Range/Units 11:36 11:36 Total Bilirubin 0.4 (0.2-1.2) mg/dL Direct Bilirubin 0.2 (0.0-0.5) mg/dL AST 39 H (5-34) Units/L ALT 50 (0-55) Units/L Alkaline Phosphatase 139 H (38-126) Units/L Albumin 1.6 L 1.6 L (3.5-5.0) g/dL - ABG Interpretation ABG results: PT/INR, D-dimer PT 52.7 Seconds (9.4-12.1) H* 08/17/16 03:45 D-Dimer 617 ng/mLFEU (0-500) H 08/15/16 16:44 - VTE Reasons for not Prescribing Prophylaxis: Not indicated-Anticoagulated or INR therapeutic Consult Discharge Plan - Plan Referrals: NO,PCP [Primary Care Provider] -
[2016-08-17] MEDS ORDERED: Potassium Chloride 40 MEQ in D5% in 0.45% NACL 1,000 ML IVC SCH (14:00)
--- NOTE | 2016-08-17 15:10 | Event Note ---
Date of Encounter: 08/17/16 Time of Encounter: 15:07 Patient seen and reexamined in concert with Senior Market Intelligence Consultant Yelena Prater. Patient stating prior to last that she was living alone in [facility] and she states she was not able to afford any food. She states that she lived alone and relied on a food bank for her intake. She states she had no family or friends and no support. She was not able to get meals on wheels. She states that she got to the point where she was too weak to get out of her chair so that she could go to the food pantry, so she stopped eating altogether. She has since moved in with her friend Jeannine in [facility]. Jeannine states she "thought she was dying" when they reconnected last week. Patient stating "I've really aged a lot too." Patient does appear much older than her stated age. Since admission, patient has been eating 100% of her meals and has requested snacks. Nutrition now onboard and nutrition supplements have been added. OT and PT are pending. SS onboard.
[2016-08-17] MEDS: D5 IVC SCH (15:44)
[2016-08-17] MEDS: NACL IVC SCH (15:44)
[2016-08-17] MEDS: POTASSIUM CHLORIDE IVC SCH (15:44)
--- NOTE | 2016-08-17 17:11 | Electrocardiograph Report ---
[place] [id number] Test Date: 2016-08-15 Pat Name: Alicia Lockhart Department: 102 Room: 3B Gender: F Critical Care Transport Nurse: Domenico : 1970 Requested By: Sara Beebe Order Number: [id number] Reading MD: Deneen Evans Measurements Intervals [place] Rate: 91 P: 37 NM: 105 QRS: 60 QRSD: 78 T: -70 QT: 401 QTc: 450 Interpretive Statements SINUS RHYTHM WITH OCCASIONAL VENTRICULAR PREMATURE COMPLEXES NONSPECIFIC ST-T ABNORMALITIES Electronically Signed On 08-17-2016 17:09:50 EDT by Deneen Evans
[2016-08-17] MEDS: Gabapentin 300 MG CAPSULE PO SCH (20:52)
[2016-08-18] MEDS: Ipratropium/Albuterol Neb 3 ML IH SCH ×4 (03:36→22:36)
[2016-08-18] MEDS: POTASSIUM CHLORIDE IVC SCH ×2 (06:34→21:37)
[2016-08-18] MEDS: NACL IVC SCH ×2 (06:34→21:37)
[2016-08-18] MEDS: D5 IVC SCH ×2 (06:34→21:37)
[2016-08-18 06:51] LABS: Basophils # 0.1 K/mcL (0.0-0.2); Basophils % 0.6 %; Eosinophils # 0.1 K/mcL (0.0-0.6); Eosinophils % 0.8 %; Hematocrit 28.9 % (35.3-44.9); Hemoglobin 9.6 g/dL (11.5-15.4); Immature Granulocytes % 0.1 % (0-4); Immature Platelets 2.8 % (1.1-6.1); Lymphocytes # 3.6 K/mcL (0.6-4.6); Lymphocytes % 46.4 %; Mean Corpuscular HGB Conc 33.2 g/dL (31.6-35.5); Mean Corpuscular Hemoglobin 31.8 pg (28.0-33.3); Mean Corpuscular Volume 95.7 fL (83.0-100.0); Mean Platelet Volume 9.9 fL (9.4-12.4); Monocytes # 0.7 K/mcL (0.0-1.3); Monocytes % 8.4 %; Neutrophils # 3.4 K/mcL (1.6-8.9); Platelet Count 316 K/mcL (140-400); Red Blood Count 3.02 M/mcL (3.82-4.97); Red Cell Distribution Width 17.2 % (11.5-14.5); Segmented Neutrophils % 43.7 %
[2016-08-18 06:55] LABS: INR 3.5; Prothrombin Time 38.7 Seconds (9.4-12.1)
[2016-08-18 07:06] LABS: BUN/Creatinine Ratio 8 (6-26); Carbon Dioxide 19 mEq/L (19-29); Chloride 117 mEq/L (98-109); Glucose 103 mg/dL (70-99); Magnesium 1.2 mg/dL (1.6-2.6); Osmolality,Calculated 288 (280-300); Potassium 3.2 mEq/L (3.5-4.5); Sodium 140 mEq/L (136-145); eGFR For African Americans > 60 (> 60); eGFR For Non-African Americans > 60 (> 60)
[2016-08-18 07:07] LABS: Albumin 1.6 g/dL (3.5-5.0); Blood Urea Nitrogen 5 mg/dL (7-20)
[2016-08-18] MEDS: Multivit/Ca/Min/Fe/FA 1 TAB TABLET PO SCH (08:49)
[2016-08-18] MEDS: Furosemide 20 MG TABLET PO SCH (08:49)
[2016-08-18] MEDS: Folic Acid 1 MG TABLET PO SCH (08:49)
[2016-08-18] MEDS: Nicotine 14 MG PATCH.TD24 TD SCH (08:50)
[2016-08-18] MEDS: Spironolactone 25 MG TABLET PO SCH (08:50)
[2016-08-18] MEDS: Cholecalciferol (D-3) 1,000 UNIT TABLET PO SCH (08:50)
[2016-08-18] MEDS: NALOXONE HCL PO SCH (09:03)
[2016-08-18] MEDS: BUPRENORPHINE HCL PO SCH (09:03)
--- NOTE | 2016-08-18 10:30 | Internal Med Progress Note ---
<Anderson Shea - Last Filed: 08/18/16 15:21> Date of Encounter: 08/18/16 Time of Encounter: 10:00 - Assessment and plan (1) UTI (urinary tract infection) Current Visit: Yes Status: Acute Assessment and plan: Urine culture consistent with pansensitive Escherichia coli. Continue ceftriaxone. Qualifiers: Urinary tract infection type: site unspecified Hematuria presence: without hematuria Qualified Code(s): N39.0 - Urinary tract infection, site not specified (2) Hypoalbuminemia due to protein-calorie malnutrition Current Visit: Yes Status: Acute Assessment and plan: Patient reports having extended history of malnutrition due to social concerns. She continues to have generalized weakness and fatigue. PT and OT are following Nutrition consult for assistance with adequate oral intake We will consult social work for assistance with placement or to help find resources Will replace magnesium and calcium (3) Supratherapeutic INR Current Visit: Yes Status: Acute Assessment and plan: Patient on lifetime Coumadin due to pulmonary emboli. Presents with supratherapeutic INR. Elevated INR likely due to malnutrition and continued Coumadin usage. INR coming down appropriately. INR check daily Coumadin dose per pharmacy (4) Angular cheilitis Current Visit: Yes Status: Acute Assessment and plan: Likely secondary to malnutrition Plan as above (5) DVT prophylaxis Current Visit: Yes Status: Acute Assessment and plan: Patient presents with supratherapeutic INR, INR checked today currently 3.5. Continue Coumadin per pharmacy - Subjective Interval history: Patient reports having roughly 4 years malnutrition decreased by mouth intake. She states she is having difficulty with wound healing as well as burning and peeling of her skin. She reports continued fatigue, but denies any pain. She states she continues to feel full but has been working to eat more. She states she has some continued shortness of breath but denies chest pain reports continued watery diarrhea. - Constitutional Vitals: Temp Pulse Resp BP Pulse Ox 98.7 F 80 15 91/63 95 08/18/16 07:38 08/18/16 07:38 08/18/16 07:38 08/18/16 07:38 08/18/16 07:38 General appearance: Present: disheveled (appears older than stated age), mild distress, A&O X 3, pleasant, answers questions appropriately Exam: General: Cooperative, pleasant, no acute distress, alert and oriented 3, answers questions appropriately HEENT: Normocephalic, slight erythema observed at corners of mouth, Conjunctiva pink, sclera anicteric, PERRL, oral mucosa moist, no orophargeal erythema or exudates Respiratory: No accessory muscle usage, clear to auscultation bilaterally, no wheezes/rhonchi/rales appreciated Cardiovascular: Regular rate and rhythm, S1 and S2 present, no murmurs/rubs/ gallops/clicks appreciated GI/abdominal: Nondistended, nontender, soft, normal bowel sounds, no peritoneal signs Extremities: No calf tenderness, noncyanotic, mild lower extremity edema noted bilaterally, warm, lower extremity pulses palpable and symmetrical Neurological: Alert and oriented 3, no facial droop, no focal deficits Skin: Dry, intact, normal color Internal Medicine: Result - Labs CBC & Chem 7: 08/18/16 05:55 08/18/16 05:55 Labs: Short CBC 08/18/16 Range/Units 05:55 WBC 7.8 (4.3-11.1) K/mcL Hgb 9.6 L (11.5-15.4) g/dL Hct 28.9 L (35.3-44.9) % Plt Count 316 (140-400) K/mcL Neutrophils # 3.4 (1.6-8.9) K/mcL BMP 08/18/16 05:55 Sodium 140 Potassium 3.2 L Chloride 117 H Carbon Dioxide 19 BUN 5 L Creatinine 0.60 Glucose 103 H Calcium 7.0 L Liver Function 08/18/16 Range/Units 05:55 Albumin 1.6 L (3.5-5.0) g/dL - ABG Interpretation ABG results: PT/INR, D-dimer PT 38.7 Seconds (9.4-12.1) H 08/18/16 05:55 D-Dimer 617 ng/mLFEU (0-500) H 08/15/16 16:44 - VTE Reasons for not Prescribing Prophylaxis: Not indicated-Anticoagulated or INR therapeutic Consult Discharge Plan - Plan Referrals: NO,PCP [Primary Care Provider] - <[place] Victor - Last Filed: 08/18/16 17:52> Date of Encounter: 08/18/16 - Constitutional Vitals: Temp Pulse Resp BP Pulse Ox 98.6 F 80 14 90/50 98 08/18/16 15:13 08/18/16 15:13 08/18/16 16:26 08/18/16 15:13 08/18/16 16:26 Internal Medicine: Result - Labs CBC & Chem 7: 08/18/16 05:55 08/18/16 05:55 Labs: Short CBC 08/18/16 Range/Units 05:55 WBC 7.8 (4.3-11.1) K/mcL Hgb 9.6 L (11.5-15.4) g/dL Hct 28.9 L (35.3-44.9) % Plt Count 316 (140-400) K/mcL Neutrophils # 3.4 (1.6-8.9) K/mcL BMP 08/18/16 05:55 Sodium 140 Potassium 3.2 L Chloride 117 H Carbon Dioxide 19 BUN 5 L Creatinine 0.60 Glucose 103 H Calcium 7.0 L Liver Function 08/18/16 Range/Units 05:55 Albumin 1.6 L (3.5-5.0) g/dL - ABG Interpretation ABG results: PT/INR, D-dimer PT 38.7 Seconds (9.4-12.1) H 08/18/16 05:55 D-Dimer 617 ng/mLFEU (0-500) H 08/15/16 16:44 - Attending Attestation I examined this patient and my medical decision-making was reviewed with the INSURANCE CLAIMS REPRESENTATIVE/PA/Advanced Practice Nurse/Resident Physician. I agree with the documented findings, disposition and treatment plan as described except to the extent set forth below. UTI, continue antibiotics, PT eval. INR monitoring.
[2016-08-18] MEDS ORDERED: Magnesium Sulfate 2 GM in D5% in Water 100 ML IVPB ONE (16:14)
[2016-08-18] MEDS ORDERED: *HR* Warfarin 2.5 MG TABLET PO ONE (18:00)
[2016-08-18] MEDS: Gabapentin 300 MG CAPSULE PO SCH (21:23)
[2016-08-19] MEDS: Ipratropium/Albuterol Neb 3 ML IH SCH ×4 (03:56→20:20)
[2016-08-19 04:59] LABS: Basophils % 0.5 %; Eosinophils # 0.1 K/mcL (0.0-0.6); Eosinophils % 0.9 %; Hematocrit 27.3 % (35.3-44.9); Hemoglobin 9.2 g/dL (11.5-15.4); Immature Granulocytes % 0.1 % (0-4); Lymphocytes # 3.9 K/mcL (0.6-4.6); Lymphocytes % 46.1 %; Mean Corpuscular HGB Conc 33.7 g/dL (31.6-35.5); Mean Corpuscular Hemoglobin 31.9 pg (28.0-33.3); Mean Corpuscular Volume 94.8 fL (83.0-100.0); Mean Platelet Volume 10.2 fL (9.4-12.4); Monocytes # 0.6 K/mcL (0.0-1.3); Monocytes % 7.1 %; Neutrophils # 3.8 K/mcL (1.6-8.9); Platelet Count 300 K/mcL (140-400); Red Blood Count 2.88 M/mcL (3.82-4.97); Red Cell Distribution Width 17.2 % (11.5-14.5); Segmented Neutrophils % 45.3 %
[2016-08-19 05:04] LABS: INR 2.9
[2016-08-19 05:18] LABS: BUN/Creatinine Ratio 5 (6-26); Carbon Dioxide 20 mEq/L (19-29); Chloride 118 mEq/L (98-109); Glucose 103 mg/dL (70-99); Magnesium 1.5 mg/dL (1.6-2.6); Osmolality,Calculated 287 (280-300); Phosphorous 2.2 mg/dL (2.3-4.7); Potassium 3.5 mEq/L (3.5-4.5); Sodium 140 mEq/L (136-145); eGFR For African Americans > 60 (> 60); eGFR For Non-African Americans > 60 (> 60)
[2016-08-19 05:19] LABS: Blood Urea Nitrogen 3 mg/dL (7-20)
[2016-08-19] MEDS: Folic Acid 1 MG TABLET PO SCH (08:33)
[2016-08-19] MEDS: Cholecalciferol (D-3) 1,000 UNIT TABLET PO SCH (08:33)
[2016-08-19] MEDS: Multivit/Ca/Min/Fe/FA 1 TAB TABLET PO SCH (08:33)
[2016-08-19] MEDS: Spironolactone 25 MG TABLET PO SCH (08:33)
[2016-08-19] MEDS: BUPRENORPHINE HCL PO SCH (08:33)
[2016-08-19] MEDS: Nicotine 14 MG PATCH.TD24 TD SCH (08:33)
[2016-08-19] MEDS: NALOXONE HCL PO SCH (08:33)
[2016-08-19] MEDS ORDERED: Magnesium Sulfate 2 GM in D5% in Water 100 ML IVPB ONE (10:40)
--- NOTE | 2016-08-19 10:40 | Internal Med Progress Note ---
<Anderson Shea - Last Filed: 08/19/16 10:38> Date of Encounter: 08/19/16 Time of Encounter: 09:55 - Assessment and plan (1) Hypoalbuminemia due to protein-calorie malnutrition Current Visit: Yes Status: Acute Assessment and plan: Patient reports having extended history of malnutrition due to social concerns. She continues to have generalized weakness and fatigue. PT and OT are following Nutrition consult for assistance with adequate oral intake will check folate and B12 We will consult social work for assistance with placement or to help find resources Will replace magnesium and calcium (2) UTI (urinary tract infection) Current Visit: Yes Status: Acute Assessment and plan: Urine culture consistent with pansensitive Escherichia coli. Continue ceftriaxone Qualifiers: Urinary tract infection type: site unspecified Hematuria presence: without hematuria Qualified Code(s): N39.0 - Urinary tract infection, site not specified (3) Supratherapeutic INR Current Visit: Yes Status: Acute Assessment and plan: Patient on lifetime Coumadin due to pulmonary emboli. Presents with supratherapeutic INR. Elevated INR likely due to malnutrition and continued Coumadin usage. INR coming down appropriately. INR check daily Coumadin dose per pharmacy (4) Angular cheilitis Current Visit: Yes Status: Acute Assessment and plan: Likely secondary to malnutrition Plan as above (5) DVT prophylaxis Current Visit: Yes Status: Acute Assessment and plan: Patient presents with supratherapeutic INR, INR checked today currently 3.5. Continue Coumadin per pharmacy - Subjective Interval history: Patient reports feeling about the same as yesterday. Says she is still having some burning sensations in her hands and feet. She has continued weakness, with little improvement as well as continued diarrhea. - Constitutional Vitals: Temp Pulse Resp BP Pulse Ox 98.5 F 100 18 97/59 95 08/19/16 08:00 08/19/16 08:00 08/19/16 08:00 08/19/16 08:00 08/19/16 08:00 General appearance: Present: disheveled (appears older than stated age), A&O X 3 , pleasant, answers questions appropriately Exam: General: Cooperative, pleasant, no acute distress, alert and oriented 3, answers questions appropriately HEENT: Normocephalic, slight erythema observed at corners of mouth, Conjunctiva pink, sclera anicteric, oral mucosa moist, no orophargeal erythema or exudates Respiratory: No accessory muscle usage, clear to auscultation bilaterally, no wheezes/rhonchi/rales appreciated Cardiovascular: Regular rate and rhythm, S1 and split S2 present with normal respiratory variation, no murmurs/rubs/gallops/clicks appreciated GI/abdominal: Nondistended, nontender, soft, normal bowel sounds, no peritoneal signs Extremities: No calf tenderness, noncyanotic, mild lower extremity edema noted bilaterally, warm, lower extremity pulses palpable and symmetrical Neurological: Alert and oriented 3, no facial droop, no focal deficits Skin: Dry, intact, normal color Internal Medicine: Result - Labs CBC & Chem 7: 08/19/16 04:36 08/19/16 04:36 Labs: Short CBC 08/19/16 Range/Units 04:36 WBC 8.5 (4.3-11.1) K/mcL Hgb 9.2 L (11.5-15.4) g/dL Hct 27.3 L (35.3-44.9) % Plt Count 300 (140-400) K/mcL Neutrophils # 3.8 (1.6-8.9) K/mcL BMP 08/19/16 04:36 Sodium 140 Potassium 3.5 Chloride 118 H Carbon Dioxide 20 BUN 3 L Creatinine 0.59 Glucose 103 H Calcium 7.0 L - ABG Interpretation ABG results: PT/INR, D-dimer PT 32.0 Seconds (9.4-12.1) H 08/19/16 04:36 D-Dimer 617 ng/mLFEU (0-500) H 08/15/16 16:44 - VTE Reasons for not Prescribing Prophylaxis: Not indicated-Anticoagulated or INR therapeutic Consult Discharge Plan - Plan Referrals: NO,PCP [Primary Care Provider] - <Washington Victor - Last Filed: 08/19/16 17:27> Date of Encounter: 08/19/16 - Constitutional Vitals: Temp Pulse Resp BP Pulse Ox 98.5 F 103 16 95/62 98 08/19/16 16:20 08/19/16 16:20 08/19/16 16:20 08/19/16 16:20 08/19/16 16:20 Internal Medicine: Result - Labs CBC & Chem 7: 08/19/16 04:36 08/19/16 04:36 Labs: Short CBC 08/19/16 Range/Units 04:36 WBC 8.5 (4.3-11.1) K/mcL Hgb 9.2 L (11.5-15.4) g/dL Hct 27.3 L (35.3-44.9) % Plt Count 300 (140-400) K/mcL Neutrophils # 3.8 (1.6-8.9) K/mcL BMP 08/19/16 04:36 Sodium 140 Potassium 3.5 Chloride 118 H Carbon Dioxide 20 BUN 3 L Creatinine 0.59 Glucose 103 H Calcium 7.0 L - ABG Interpretation ABG results: PT/INR, D-dimer PT 32.0 Seconds (9.4-12.1) H 08/19/16 04:36 D-Dimer 617 ng/mLFEU (0-500) H 08/15/16 16:44 - Attending Attestation I examined this patient and my medical decision-making was reviewed with the RESIDENTIAL SALES REP/PA/Advanced Practice Nurse/Resident Physician. I agree with the documented findings, disposition and treatment plan as described except to the extent set forth below. Contunue antibiotics, supplement magnesium, possible d/c tomorrow.
[2016-08-19 12:50] LABS: Folate 18.7 ng/mL (7.0-31.4)
[2016-08-19] MEDS: POTASSIUM CHLORIDE IVC SCH (13:10)
[2016-08-19] MEDS: D5 IVC SCH (13:10)
[2016-08-19] MEDS: NACL IVC SCH (13:10)
[2016-08-19] MEDS ORDERED: *HR* Warfarin 4 MG TABLET PO ONE (18:00)
[2016-08-19] MEDS: Gabapentin 300 MG CAPSULE PO SCH (20:32)
[2016-08-20] MEDS: Ipratropium/Albuterol Neb 3 ML IH SCH ×4 (03:20→21:50)
[2016-08-20 05:00] LABS: Basophils # 0.1 K/mcL (0.0-0.2); Basophils % 0.6 %; Eosinophils # 0.1 K/mcL (0.0-0.6); Hematocrit 26.9 % (35.3-44.9); Hemoglobin 9.1 g/dL (11.5-15.4); Immature Granulocytes % 0.2 % (0-4); Lymphocytes # 3.9 K/mcL (0.6-4.6); Lymphocytes % 42.5 %; Mean Corpuscular HGB Conc 33.8 g/dL (31.6-35.5); Mean Corpuscular Hemoglobin 32.5 pg (28.0-33.3); Mean Corpuscular Volume 96.1 fL (83.0-100.0); Mean Platelet Volume 10.6 fL (9.4-12.4); Monocytes # 0.6 K/mcL (0.0-1.3); Monocytes % 6.5 %; Neutrophils # 4.6 K/mcL (1.6-8.9); Platelet Count 268 K/mcL (140-400); Red Cell Distribution Width 16.7 % (11.5-14.5); Segmented Neutrophils % 49.2 %
[2016-08-20 05:07] LABS: INR 2.9; Prothrombin Time 32.2 Seconds (9.4-12.1)
[2016-08-20 05:15] LABS: Alanine Aminotransferase 44 Units/L (0-55); Albumin/Globulin Ratio 0.7 (1.1-2.2); Alkaline Phosphatase 113 Units/L (38-126); Aspartate Amino Transferase 29 Units/L (5-34); BUN/Creatinine Ratio 5 (6-26); Bilirubin,Total 0.4 mg/dL (0.2-1.2); Calcium 6.9 mg/dL (8.6-10.8); Carbon Dioxide 20 mEq/L (19-29); Chloride 117 mEq/L (98-109); Glucose 97 mg/dL (70-99); Magnesium 1.3 mg/dL (1.6-2.6); Osmolality,Calculated 284 (280-300); Phosphorous 2.3 mg/dL (2.3-4.7); Potassium 3.8 mEq/L (3.5-4.5); Sodium 139 mEq/L (136-145); Total Protein 3.4 g/dL (6.0-8.3); eGFR For African Americans > 60 (> 60); eGFR For Non-African Americans > 60 (> 60)
[2016-08-20 05:24] LABS: Albumin 1.4 g/dL (3.5-5.0); Blood Urea Nitrogen 3 mg/dL (7-20)
[2016-08-20] MEDS: NACL IVC SCH (06:05)
[2016-08-20] MEDS: POTASSIUM CHLORIDE IVC SCH (06:05)
[2016-08-20] MEDS: D5 IVC SCH (06:05)
[2016-08-20] MEDS: NALOXONE HCL PO SCH (08:29)
[2016-08-20] MEDS: BUPRENORPHINE HCL PO SCH (08:29)
[2016-08-20] MEDS: Cholecalciferol (D-3) 1,000 UNIT TABLET PO SCH (09:17)
[2016-08-20] MEDS: Multivit/Ca/Min/Fe/FA 1 TAB TABLET PO SCH (09:17)
[2016-08-20] MEDS: Folic Acid 1 MG TABLET PO SCH (09:18)
[2016-08-20] MEDS: Nicotine 14 MG PATCH.TD24 TD SCH (09:18)
[2016-08-20] MEDS: Spironolactone 25 MG TABLET PO SCH (09:18)
[2016-08-20] MEDS ORDERED: Magnesium Sulfate 2 GM in D5% in Water 100 ML IVPB ONE (10:40)
[2016-08-20] MEDS ORDERED: Albumin 25% 25gram/100mL 25 GM/100 ML IV.SOLN IVPB ONE (10:40)
--- NOTE | 2016-08-20 10:40 | Internal Med Progress Note ---
<Anderson Shea - Last Filed: 08/20/16 13:54> Date of Encounter: 08/20/16 Time of Encounter: 09:05 - Assessment and plan (1) Hypoalbuminemia due to protein-calorie malnutrition Current Visit: Yes Status: Acute Assessment and plan: Patient reports having extended history of malnutrition due to social concerns. She continues to have generalized weakness and fatigue. PT and OT are following Nutrition consult for assistance with adequate oral intake We will consult social work for assistance with placement or to help find resources Will replace magnesium again today Will give single dose of IV albumin for patient symptoms Likely discharge tomorrow pending placement (2) UTI (urinary tract infection) Current Visit: Yes Status: Acute Assessment and plan: Urine culture consistent with pansensitive Escherichia coli. She is on ceftriaxone currently today is day 08/19 Will give additional dose tomorrow prior to discharge Qualifiers: Urinary tract infection type: site unspecified Hematuria presence: without hematuria Qualified Code(s): N39.0 - Urinary tract infection, site not specified (3) Hypomagnesemia Current Visit: Yes Status: Acute Assessment and plan: Patient has been having some issues maintaining adequate levels of magnesium. She has required several doses of IV magnesium and is still at a magnesium of 1.3. Will give an additional 2 gm IV magnesium today Start 400 mg daily mag-ox PO (4) Supratherapeutic INR Current Visit: Yes Status: Acute Assessment and plan: Patient on lifetime Coumadin due to pulmonary emboli. Presents with supratherapeutic INR. Elevated INR likely due to malnutrition and continued Coumadin usage. INR coming down appropriately. INR check daily Coumadin dose per pharmacy (5) Angular cheilitis Current Visit: Yes Status: Acute Assessment and plan: Likely secondary to malnutrition Plan as above (6) DVT prophylaxis Current Visit: Yes Status: Acute Assessment and plan: Patient presents with supratherapeutic INR, INR checked today currently 3.5. Continue Coumadin per pharmacy - Subjective Interval history: Patient reports that she is feeling somewhat better today, but reports continued weakness and burning in her hands and feet. She has had the erythema at the corners of her mouth, but she states that today she has been having pain at the corners of her mouth. She continues to deny fevers/chills, chest pain, or shortness of breath. 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 - Constitutional Vitals: Temp Pulse Resp BP Pulse Ox 99.2 F 85 16 106/75 97 08/20/16 07:20 08/20/16 07:20 08/20/16 07:20 08/20/16 07:20 08/20/16 07:20 General appearance: Present: disheveled (appears older than stated age), A&O X 3 , pleasant, answers questions appropriately Exam: General: Cooperative, pleasant, no acute distress, alert and oriented 3, answers questions appropriately HEENT: Normocephalic, slight erythema observed at corners of mouth, Conjunctiva pink, sclera anicteric, oral mucosa moist, no orophargeal erythema or exudates Respiratory: No accessory muscle usage, clear to auscultation bilaterally, no wheezes/rhonchi/rales appreciated Cardiovascular: Regular rate and rhythm, S1 and split S2 present with normal respiratory variation, no murmurs/rubs/gallops/clicks appreciated GI/abdominal: Nondistended, nontender, soft, normal bowel sounds, no peritoneal signs Extremities: No calf tenderness, noncyanotic, mild lower extremity edema noted bilaterally, warm, lower extremity pulses palpable and symmetrical Neurological: Alert and oriented 3, no facial droop, no focal deficits Skin: Dry, intact, normal color Internal Medicine: Result - Labs CBC & Chem 7: 08/20/16 03:44 08/20/16 03:44 Labs: Short CBC 08/20/16 Range/Units 03:44 WBC 9.3 (4.3-11.1) K/mcL Hgb 9.1 L (11.5-15.4) g/dL Hct 26.9 L (35.3-44.9) % Plt Count 268 (140-400) K/mcL Neutrophils # 4.6 (1.6-8.9) K/mcL BMP 08/20/16 03:44 Sodium 139 Potassium 3.8 Chloride 117 H Carbon Dioxide 20 BUN 3 L Creatinine 0.61 Glucose 97 Calcium 6.9 L Liver Function 08/20/16 Range/Units 03:44 Total Bilirubin 0.4 (0.2-1.2) mg/dL AST 29 (5-34) Units/L ALT 44 (0-55) Units/L Alkaline Phosphatase 113 (38-126) Units/L Albumin 1.4 L (3.5-5.0) g/dL - ABG Interpretation ABG results: PT/INR, D-dimer PT 32.2 Seconds (9.4-12.1) H 08/20/16 03:44 D-Dimer 617 ng/mLFEU (0-500) H 08/15/16 16:44 - VTE Reasons for not Prescribing Prophylaxis: Not indicated-Anticoagulated or INR therapeutic Consult Discharge Plan - Plan Referrals: NO,PCP [Primary Care Provider] - <Washington Victor - Last Filed: 08/20/16 15:58> Date of Encounter: 08/20/16 - Constitutional Vitals: Temp Pulse Resp BP Pulse Ox 98.8 F 92 16 105/73 97 08/20/16 15:28 08/20/16 15:28 08/20/16 15:28 08/20/16 15:28 08/20/16 15:28 Internal Medicine: Result - Labs CBC & Chem 7: 08/20/16 03:44 08/20/16 03:44 Labs: Short CBC 08/20/16 Range/Units 03:44 WBC 9.3 (4.3-11.1) K/mcL Hgb 9.1 L (11.5-15.4) g/dL Hct 26.9 L (35.3-44.9) % Plt Count 268 (140-400) K/mcL Neutrophils # 4.6 (1.6-8.9) K/mcL BMP 08/20/16 03:44 Sodium 139 Potassium 3.8 Chloride 117 H Carbon Dioxide 20 BUN 3 L Creatinine 0.61 Glucose 97 Calcium 6.9 L Liver Function 08/20/16 Range/Units 03:44 Total Bilirubin 0.4 (0.2-1.2) mg/dL AST 29 (5-34) Units/L ALT 44 (0-55) Units/L Alkaline Phosphatase 113 (38-126) Units/L Albumin 1.4 L (3.5-5.0) g/dL - ABG Interpretation ABG results: PT/INR, D-dimer PT 32.2 Seconds (9.4-12.1) H 08/20/16 03:44 D-Dimer 617 ng/mLFEU (0-500) H 08/15/16 16:44 - Attending Attestation I examined this patient and my medical decision-making was reviewed with the CATCH BASIN CLEANER/PA/Advanced Practice Nurse/Resident Physician. I agree with the documented findings, disposition and treatment plan as described except to the extent set forth below. Multiple elcetrolyte abnormalities, continue magnesum supplementation via iv, PT, Agree with DR. Shea. D/C planning to rehab.
[2016-08-20] MEDS ORDERED: D5% in 0.45% NACL w KCl 20 MEQ/1,000 ML MLS IVC SCH ×2 (14:15→17:00)
[2016-08-20] MEDS: Magnesium Oxide 400 MG TABLET PO SCH (14:51)
[2016-08-20] MEDS ORDERED: NACL IVC SCH ×2 (15:00→17:15)
[2016-08-20] MEDS ORDERED: D5 IVC SCH ×2 (15:00→17:15)
[2016-08-20] MEDS ORDERED: POTASSIUM CHLORIDE IVC SCH ×2 (15:00→17:15)
[2016-08-20] MEDS ORDERED: *HR* Warfarin 3 MG TABLET PO ONE (18:00)
[2016-08-20] MEDS: Gabapentin 300 MG CAPSULE PO SCH (20:38)
[2016-08-21] MEDS ORDERED: D5% in 0.45% NACL w KCl 20 MEQ/1,000 ML MLS IVC SCH
[2016-08-21] MEDS: Ipratropium/Albuterol Neb 3 ML IH SCH ×2 (03:02→10:47)
[2016-08-21 05:15] LABS: Basophils % 0.3 %; Eosinophils # 0.1 K/mcL (0.0-0.6); Eosinophils % 1.5 %; Hematocrit 23.8 % (35.3-44.9); Hemoglobin 8.1 g/dL (11.5-15.4); Immature Granulocytes % 0.2 % (0-4); Lymphocytes # 3.1 K/mcL (0.6-4.6); Lymphocytes % 45.9 %; Mean Corpuscular Hemoglobin 32.9 pg (28.0-33.3); Mean Corpuscular Volume 96.7 fL (83.0-100.0); Mean Platelet Volume 10.4 fL (9.4-12.4); Monocytes # 0.6 K/mcL (0.0-1.3); Monocytes % 8.3 %; Neutrophils # 2.9 K/mcL (1.6-8.9); Platelet Count 237 K/mcL (140-400); Red Blood Count 2.46 M/mcL (3.82-4.97); Red Cell Distribution Width 16.7 % (11.5-14.5); Segmented Neutrophils % 43.8 %
[2016-08-21 05:20] LABS: INR 3.7; Prothrombin Time 41.4 Seconds (9.4-12.1)
[2016-08-21 05:35] LABS: BUN/Creatinine Ratio 6 (6-26); Calcium 6.9 mg/dL (8.6-10.8); Carbon Dioxide 20 mEq/L (19-29); Chloride 117 mEq/L (98-109); Glucose 89 mg/dL (70-99); Magnesium 1.5 mg/dL (1.6-2.6); Osmolality,Calculated 284 (280-300); Sodium 139 mEq/L (136-145); eGFR For African Americans > 60 (> 60); eGFR For Non-African Americans > 60 (> 60)
[2016-08-21 05:47] LABS: Blood Urea Nitrogen 3 mg/dL (7-20)
[2016-08-21 07:08] VITALS: BP 100/68
[2016-08-21] MEDS: Nicotine 14 MG PATCH.TD24 TD SCH (08:30)
[2016-08-21] MEDS: Spironolactone 25 MG TABLET PO SCH (08:31)
[2016-08-21] MEDS: Multivit/Ca/Min/Fe/FA 1 TAB TABLET PO SCH (08:31)
[2016-08-21] MEDS: Cholecalciferol (D-3) 1,000 UNIT TABLET PO SCH (08:31)
[2016-08-21] MEDS: Magnesium Oxide 400 MG TABLET PO SCH (08:31)
[2016-08-21] MEDS: Folic Acid 1 MG TABLET PO SCH (08:32)
[2016-08-21] MEDS: BUPRENORPHINE HCL PO SCH (08:50)
[2016-08-21] MEDS: NALOXONE HCL PO SCH (08:50)
--- NOTE | 2016-08-21 11:19 | Discharge Summary ---
<MonseAnderson - Last Filed: 08/21/16 11:39> Date of Encounter: 08/21/16 Time of Encounter: 09:30 - Discharge Diagnosis (1) Hypoalbuminemia due to protein-calorie malnutrition Priority: Primary Status: Acute (2) UTI (urinary tract infection) Priority: Primary Status: Resolved Qualifiers: Urinary tract infection type: site unspecified Hematuria presence: without hematuria Qualified Code(s): N39.0 - Urinary tract infection, site not specified (3) Hypomagnesemia Priority: Primary Status: Acute (4) Supratherapeutic INR Priority: Secondary Status: Acute (5) Angular cheilitis Priority: Secondary Status: Acute (6) DVT prophylaxis Priority: Secondary Status: Acute - Discharge Medications Prescriptions: Magnesium Oxide [Mag-Ox] 400 mg PO DAILY 30 Days Multivit/Ca/Min/Fe/FA [Thera M Plus] 1 tab PO DAILY 30 Days Home Medications: Buprenorphine HCl/Naloxone HCl [Buprenorphin-Naloxon 8-2 mg Sl] 1.5 tab DAILY [History] Cholecalciferol (Vitamin D3) [Vitamin D3] 5,000 unit PO DAILY 08/15/16 [History] Cyanocobalamin (B-12) [Vitamin B12] 1,000 mcg IM QMONTH 08/15/16 [History] DiphenhydraMINE [Benadryl] 25 mg PO Q6HR PRN 08/15/16 [History] Ferrous Sulfate [Iron] 325 mg PO BID 08/15/16 [History] Folic Acid 1 mg DAILY 08/15/16 [History] Furosemide [Lasix] 40 mg PO DAILY 08/15/16 [History] Gabapentin [Neurontin] 300 mg PO BID 08/15/16 [History] Pantoprazole Sodium [Protonix] 40 mg PO DAILY 08/15/16 [History] Paroxetine HCl [Paxil] 40 mg PO DAILY 08/15/16 [History] Promethazine [Phenergan] 25 mg PO Q4HR 08/15/16 [History] Spironolactone [Aldactone] 25 mg PO DAILY 08/15/16 [History] Warfarin [Coumadin] 5 mg PO SUTUTHSA 08/15/16 [History] Doxazosin [Cardura] 1 mg PO DAILY 08/16/16 [History] Methylphenidate HCl [Ritalin] 20 mg PO BID 08/16/16 [History] Warfarin [Coumadin] 6 mg PO MOWEFR 08/16/16 [History] Magnesium Oxide [Mag-Ox] 400 mg PO DAILY 30 Days 08/21/16 [Rx] Multivit/Ca/Min/Fe/FA [Thera M Plus] 1 tab PO DAILY 30 Days 08/21/16 [Rx] Allergies/Adverse Reactions: Allergies ibuprofen Allergy (Verified 08/15/16 15:23) See Comments Chilango Chris Syndrome symptoms rivaroxaban [From Xarelto] Allergy (Verified 08/15/16 15:23) See Comments Chilango Chris Syndrome symptoms [place] Allergy (Verified 08/15/16 15:23) See Comments Chilango Chris Syndrome symptoms Date of admission: 08/17/16 13:39 Primary care physician: ANJELICA COELHO Discharging clinician: Anderson Shea Anticipated date of discharge: 08/21/16 - Patient Status Disposition: Transfer SNF Condition: Fair Functional capacity at discharge: independent ambulation Overall status at discharge: patient is progressing back to baseline - Discharge Instructions Follow Up With: MELITON,PCP [Primary Care Provider] - Additional Instructions: Continue home medications Take all medications as prescribed: Magnesium oxide 400 mg daily Multivitamin daily Follow up with your PCP in 1-2 weeks - Diet and Activity Activity: increase activity as tolerated Diet: advance to your usual diet Interval History: Patient reports feeling improved today. She is reports some minor, continued nausea that is controlled with medication as well as continued weakness, but no new concerns/complaints. Hospital course: Ms. 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 She was found to have an elevated D-dmier and underwent a workup for PE and ACS. These were negative, but she was found to a pansensitive e. coli UTI and severely hypoalbuminemic due to malnutrition. Her UTI was treated with 7 days of ceftriaxone and she began treatment for her hypoalbuminemia. Because correction of her malnutrition will require more jail changes to her diet. She was seen by a vegetable farm manager and supplementation of her diet commenced. She also received supplementation of her vitamins and electrolytes, including potassium. As of today she is safe/stable for discharge to a SNF for further work on her weakness and nutritional status. - Time Spent with Patient Total time spent providing and/or coordinating discharge services: - Constitutional Vitals: Temp Pulse Resp BP Pulse Ox 99.8 F H 83 12 100/68 95 08/21/16 11:00 08/21/16 11:00 08/21/16 11:00 08/21/16 11:00 08/21/16 11:00 General appearance: Present: disheveled (appears older than stated age), A&O X 3 , pleasant, answers questions appropriately Exam: General: Cooperative, pleasant, no acute distress, alert and oriented 3, answers questions appropriately HEENT: Normocephalic, slight erythema observed at corners of mouth, Conjunctiva pink, sclera anicteric, PERRL, oral mucosa moist, no orophargeal erythema or exudates Respiratory: No accessory muscle usage, clear to auscultation bilaterally, no wheezes/rhonchi/rales appreciated Cardiovascular: Regular rate and rhythm, S1 and S2 present, no murmurs/rubs/ gallops/clicks appreciated GI/abdominal: Nondistended, nontender, soft, normal bowel sounds, no peritoneal signs Extremities: No calf tenderness, noncyanotic, mild lower extremity edema noted bilaterally, warm, lower extremity pulses palpable and symmetrical Neurological: Alert and oriented 3, no facial droop, no focal deficits Skin: Dry, intact, normal color - VTE Reasons for not Prescribing Prophylaxis: Not indicated-Anticoagulated or INR therapeutic <Washington Victor - Last Filed: 08/21/16 15:34> Date of Encounter: 08/21/16 Date of admission: 08/17/16 13:39 Primary care physician: PCP NO Hospital course: Ms. Lockhart is a 46 year old female - Time Spent with Patient Total time spent providing and/or coordinating discharge services: - Constitutional Vitals: Temp Pulse Resp BP Pulse Ox 99.8 F H 83 12 100/68 95 08/21/16 11:00 08/21/16 11:00 08/21/16 11:00 08/21/16 11:00 08/21/16 11:00 - Attending Attestation I examined this patient and my medical decision-making was reviewed with the OPHTHALMIC ASST/PA/Advanced Practice Nurse/Resident Physician. I agree with the documented findings, disposition and treatment plan as described except to the extent set forth below. UTI recevied treatment with rocephin. Hypomagnesemia and malnutrition. Needs inpatient rehab. Transfer to SNF.
--- NOTE | 2016-08-21 11:39 | Physician Discharge Referral ---
ExtendedCare Referral Info Transfer To: correction facility Provider in Charge after Transfer: PCP Institutional Level of Care: Skilled - Diagnosis (1) Hypoalbuminemia due to protein-calorie malnutrition Priority: Primary Status: Acute (2) UTI (urinary tract infection) Priority: Primary Status: Resolved (3) Hypomagnesemia Priority: Primary Status: Acute (4) Supratherapeutic INR Priority: Secondary Status: Acute (5) Angular cheilitis Priority: Secondary Status: Acute (6) DVT prophylaxis Priority: Secondary Status: Acute - Transfer Medications Prescriptions: Magnesium Oxide [Mag-Ox] 400 mg PO DAILY 30 Days Multivit/Ca/Min/Fe/FA [Thera M Plus] 1 tab PO DAILY 30 Days Home Medications: Buprenorphine HCl/Naloxone HCl [Buprenorphin-Naloxon 8-2 mg Sl] 1.5 tab DAILY [History] Cholecalciferol (Vitamin D3) [Vitamin D3] 5,000 unit PO DAILY 08/15/16 [History] Cyanocobalamin (B-12) [Vitamin B12] 1,000 mcg IM QMONTH 08/15/16 [History] DiphenhydraMINE [Benadryl] 25 mg PO Q6HR PRN 08/15/16 [History] Ferrous Sulfate [Iron] 325 mg PO BID 08/15/16 [History] Folic Acid 1 mg DAILY 08/15/16 [History] Furosemide [Lasix] 40 mg PO DAILY 08/15/16 [History] Gabapentin [Neurontin] 300 mg PO BID 08/15/16 [History] Pantoprazole Sodium [Protonix] 40 mg PO DAILY 08/15/16 [History] Paroxetine HCl [Paxil] 40 mg PO DAILY 08/15/16 [History] Promethazine [Phenergan] 25 mg PO Q4HR 08/15/16 [History] Spironolactone [Aldactone] 25 mg PO DAILY 08/15/16 [History] Warfarin [Coumadin] 5 mg PO SUTUTHSA 08/15/16 [History] Doxazosin [Cardura] 1 mg PO DAILY 08/16/16 [History] Methylphenidate HCl [Ritalin] 20 mg PO BID 08/16/16 [History] Warfarin [Coumadin] 6 mg PO MOWEFR 08/16/16 [History] Magnesium Oxide [Mag-Ox] 400 mg PO DAILY 30 Days 08/21/16 [Rx] Multivit/Ca/Min/Fe/FA [Thera M Plus] 1 tab PO DAILY 30 Days 08/21/16 [Rx] Allergies/Adverse Reactions: Allergies ibuprofen Allergy (Verified 08/15/16 15:23) See Comments Chilango Chris Syndrome symptoms rivaroxaban [From Xarelto] Allergy (Verified 08/15/16 15:23) See Comments Chilango Chris Syndrome symptoms [place] Allergy (Verified 08/15/16 15:23) See Comments Chilango Chris Syndrome symptoms - Respiratory Orders Smoking Cessation: Smoking cessation has been advised. For more information, call the [place] Tobacco Quit Line at 3-671-JTPN-NOW. - Lab Orders Lab Orders: Other (include drug levels w/frequency) (recommend magnesium in 1 week) - Advance Directives Code Status: Full Code - Mobility Orders Ambulate - Rehabiliation Orders Rehab Potential: Fair Rehab Orders: Evaluation for Physical Therapy, Evaluation for Occupational Therapy - Diet Orders Regular CERTIFICATION: I certify that the transfer of the above named patient to an Extended Care Facility is necessary for the continuing treatment of the diagnosis listed. The above information is true and accurate reflection of patient's current condition. Confidential - Redisclosure prohibited without a patient's written consent.
[2016-08-21] MEDS ORDERED: Aminoglycoside Consult 1 EACH MC ONE (13:34)
== END 2016-08-21 13:35 | DRG 421 ==
LOC: 3BNU 15:21 → EMEROO 15:21 → 3BNU 21:24 → SUATTDRO 08-17 13:39 → 3BNU 08-21 01:46
PROVIDERS: ADMIT Internal Medicine; ATTEND Internal Medicine